=== PATIENT | male | born 1970 | race Caucasian/White ===

== ENCOUNTER 2020-10-05 08:58 | Day surgery (SDC) | payer OTHER ==
[2020-10-05] MEDS ORDERED: LACTATED RINGERS 1,000 ML IV ONE ×2 (09:36→10:43)
[2020-10-05] MEDS ORDERED: fentaNYL 250 MCG/5 ML VIAL ONE (10:10)
[2020-10-05] MEDS ORDERED: MIDAZOLAM 2 MG/2 ML VIAL ONE ×3 (10:10→10:31)
[2020-10-05 11:15] VITALS: BP 106/66
== END 2020-10-05 08:59 | disposition home or self-care (01) ==
LOC: SDS 08:58
PROVIDERS: ATTEND Surgery
DX: Z12.11 Encounter for screening for malignant neoplasm of colon (principal); K64.8 Other hemorrhoids; Z85.820 Personal history of malignant melanoma of skin
CPT/HCPCS: 45378; J3010; J7120